=== PATIENT | male | born 1975 | race Caucasian/White ===

== ENCOUNTER 2017-05-28 16:36 | Emergency (ER) | payer BC, OTHER ==
[2017-05-28] MEDS ORDERED: Sodium Chloride 0.9% 1,000 ML ONE ×2 (16:47→20:49)
[2017-05-28] MEDS ORDERED: Ondansetron HCl/PF 4 MG/2 ML Vial ONE ×2 (16:47→19:23)
[2017-05-28 17:29] LABS: ALT (SGPT) 53 U/L (8-55); AST (SGOT) 26 U/L (5-34); Albumin 4.4 g/dL (3.5-5.0); Alkaline Phosphatase 64 U/L (40-150); Anion Gap 20 mmol/L (10-20); BUN (Urea Nitrogen) 21 mg/dL (8.9-20.6); Bilirubin, Total 0.6 mg/dL (0.2-1.2); Calc. Creatinine Clearance 0 mL/min (70-130); Calcium 10.4 mg/dL (7.8-10.44); Carbon Dioxide 18 mmol/L (22-29); Chloride 104 mmol/L (98-107); Estimated GFR-MDRD 54; Globulin 3.3 g/dL (2.4-3.5); Glucose 181 mg/dL (70-105); Potassium 4.6 mmol/L (3.5-5.1); Protein, Total 7.7 g/dL (6.0-8.3); Sodium 137 mmol/L (136-145)
[2017-05-28 17:54] LABS: Band 3 % (5-11); Hemoglobin 15.4 g/dL (14.0-18.0); Lymphocytes 5 % (21-51); MDiff Complete? YES; Mean Corpuscular Hemoglobin 28.4 pg (27.0-31.0); Mean Corpuscular Volume 83.5 fl (80.0-94.0); Mean Platelet Volume 8.3 fL (7.4-10.4); Monocytes 3 % (0-10); Neutrophil 89 % (42-75); Platelet Count 388 thou/uL (130-400); RBC Distribution Width 11.2 % (11.5-14.5); Red Blood Cell (RBC) Count 5.43 mill/uL (4.70-6.10); White Blood Cell (WBC) Count 21.5 thou/uL (4.8-10.8)
[2017-05-28] MEDS ORDERED: Levofloxacin 500 mg/D5W 100 ml Premix Bag ONE (18:39)
--- NOTE | 2017-05-28 18:51 | CT ---
CT OF THE ABDOMEN AND PELVIS: 05/28/17 COMPARISON: None. HISTORY: Nausea, vomiting and diarrhea. TECHNIQUE: Serial axial CT imaging is obtained at 5 mm intervals from the lung bases through the pubic symphysis without contrast. Coronal reformatted imaging obtained. FINDINGS: The lack of contrast limits assessment of the viscera, bowel, vascular structures and for lymphadenop athy. The imaged lung bases appear unremarkable. There is no free intraperitoneal air seen. Liver is diffus karthikeyan hypodense suggesting steatosis. Spleen, gallbladder, pancreas, adrenal glands, and kidneys are gr ossly unremarkable. There is extensive diverticulosis of the descending colon and sigmoid colon. There is mild wall thick ening of the sigmoid colon within the left lower quadrant which may represent mild diverticulitis. No significant pericolonic fat stranding is seen. No evidence for extraluminal gas or abscess. There is scattered atherosclerotic calcification of the infrarenal abdominal aorta. no evidence for o bstructive uropathy or nephrolithiasis is appreciated on either side. The osseous structures demonstr ate no acute findings. Old right sided transverse process fractures are noted at L3 and L4. IMPRESSION: 1. No evidence for nephrolithiasis or obstructive uropathy. 2. Sigmoid and descending colonic diverticulosis with possible mild diverticulitis in the region of the sigmoid colon. 3. Hepatic steatosis. POS: [facility]
[2017-05-28] MEDS ORDERED: Sodium Chloride 0.9% 100 ML ONE (19:52)
[2017-05-28] MEDS ORDERED: Promethazine HCl 25 MG/ML VIAL ONE (19:52)
[2017-05-28] MEDS ORDERED: metroNIDAZOLE 500 MG/100 ML BAG ONE ×2 (21:04→21:14)
== END 2017-05-28 22:35 | disposition short-term general hospital (02) ==
LOC: NAV ERS 16:36
DX: K52.9 Noninfective gastroenteritis and colitis, unspecified (principal); K57.92 Diverticulitis of intestine, part unspecified, without perforation or abscess without bleeding; E86.9 Volume depletion, unspecified; N28.9 Disorder of kidney and ureter, unspecified; E11.9 Type 2 diabetes mellitus without complications; E78.5 Hyperlipidemia, unspecified; K21.9 Gastro-esophageal reflux disease without esophagitis; I10 Essential (primary) hypertension; F17.210 Nicotine dependence, cigarettes, uncomplicated; Z79.84 Long term (current) use of oral hypoglycemic drugs; Z79.899 Other long term (current) drug therapy
CPT/HCPCS: 74176; 80053; 82274; 85025; 87045; 87046; 87449; 87899; 96361; 96365; 96367; 96375; 96376; J1956; J2270; J2405; J2550; J7050

== ENCOUNTER 2018-05-10 12:03 | Emergency (ER) | payer BC ==
[2018-05-10 12:40] LABS: #Monocytes 0.7 thou/uL (0.11-0.59); #Neutrophils 11.5 thou/uL (1.40-6.50); %Basophils 0.3 % (0.0-1.0); %Eosinophils 0.1 % (0.0-10.0); %Lymphocytes 7.5 % (21.0-51.0); %Monocytes 5.4 % (0.0-10.0); %Neutrophils 86.7 % (42.0-75.0); Hemoglobin 14.9 g/dL (14.0-18.0); Mean Corpuscular HGB CONC 34.1 g/dL (32.0-36.0); Mean Corpuscular Hemoglobin 29.3 pg (27.0-31.0); Mean Corpuscular Volume 85.8 fL (78.0-98.0); Mean Platelet Volume 6.6 fL (7.4-10.4); Platelet Count 429 thou/uL (130-400); RBC Distribution Width 11.8 % (11.5-14.5); White Blood Cell (WBC) Count 13.2 thou/uL (4.8-10.8)
[2018-05-10] MEDS ORDERED: Morphine 4 MG/ML VIAL ONE (12:46)
[2018-05-10] MEDS ORDERED: Sodium Chloride 0.9% 1,000 ML ONE (12:46)
[2018-05-10] MEDS ORDERED: Ondansetron PF 4 MG/2 ML Vial ONE (12:46)
[2018-05-10 12:58] LABS: ALT (SGPT) 33 U/L (8-55); AST (SGOT) 21 U/L (5-34); Albumin 4.6 g/dL (3.5-5.0); Alkaline Phosphatase 81 U/L (40-150); Anion Gap 19 mmol/L (10-20); BUN (Urea Nitrogen) 27 mg/dL (8.9-20.6); Bilirubin, Total 0.5 mg/dL (0.2-1.2); Calc. Creatinine Clearance 0 mL/min (70-130); Calcium 10.5 mg/dL (7.8-10.44); Carbon Dioxide 22 mmol/L (22-29); Chloride 99 mmol/L (98-107); Estimated GFR-MDRD 45; Glucose 261 mg/dL (70-105); Potassium 4.2 mmol/L (3.5-5.1); Protein, Total 7.6 g/dL (6.0-8.3); Sodium 136 mmol/L (136-145)
[2018-05-10 13:04] LABS: Bilirubin Small (Negative); Blood, Urine Negative (Negative); Clarity Clear (Clear); Glucose, Urine (Dipstick) 250 mg/dL (Negative); Leukocyte Negative (Negative); Nitrite Negative (Negative); Protein, Urine (Dipstick) 30 mg/dL (Neg-Trace); Specific Gravity, Urine 1.025 (1.005-1.030); Urobilinogen 0.2 mg/dL (0.2-1.0); pH, Urine 5.5 (5.0-9.0)
[2018-05-10 13:09] LABS: Bacteria/HPF None Seen HPF (None Seen); RBC/HPF None Seen HPF (0-3); Squamous Epithelial 0-3 HPF (0-3); WBC/HPF None Seen HPF (0-3)
--- NOTE | 2018-05-10 13:47 | CT ---
CT OF ABDOMEN AND PELVIS PERFORMED WITHOUT CONTRAST ENHANCEMENT: Date: 05/10/18 HISTORY: Left-sided abdominal pain. COMPARISON: 05/28/18 study. FINDINGS: The lung bases are clear. There are fatty changes of the liver, which measures 19.1 cm in length. The spleen is within normal l imits. The pancreas and gallbladder regions are unremarkable. Right and left adrenal glands, and right and left kidneys are normal in size. No obstruction. No jarvis l calculi or mass. No significant periaortic or mesenteric adenopathy. CT of pelvis was performed without contrast enhancement. Mild diverticulosis of the descending colon is noted. More pronounced changes of the sigmoid colon. No inflammatory process visualized. No signif icant pelvic lymphadenopathy. No inflammatory change in the expected region of the appendix. The appe ndix itself is difficult to definitively identify. IMPRESSION: 1. Colonic diverticulosis. 2. Fatty change of the liver. POS: [facility]
== END 2018-05-10 14:46 | disposition home or self-care (01) ==
LOC: NAV ERS 12:03
DX: K52.9 Noninfective gastroenteritis and colitis, unspecified (principal); N28.9 Disorder of kidney and ureter, unspecified; E11.9 Type 2 diabetes mellitus without complications; E78.5 Hyperlipidemia, unspecified; K21.9 Gastro-esophageal reflux disease without esophagitis; I10 Essential (primary) hypertension; F17.210 Nicotine dependence, cigarettes, uncomplicated; Z79.899 Other long term (current) drug therapy; Z79.84 Long term (current) use of oral hypoglycemic drugs
CPT/HCPCS: 36415; 36416; 74176; 80053; 81003; 81015; 83690; 85025; 96361; 96374; 96375; J2270; J2405; J7050

== ENCOUNTER 2018-11-22 09:31 | Outpatient (CLI) | payer BC ==
--- NOTE | 2018-11-22 10:09 | RAD ---
XR Pelvis AP STANDARD History: Pain Comparison: None. Findings: No acute fracture or malalignment. SI joints and pubic symphysis are unremarkable. Hip join t alignment is normal. Soft tissues are unremarkable. Impression: No acute abnormality of the pelvis.
--- NOTE | 2018-11-22 10:10 | RAD ---
XR Hip Lt 2-3 View History: Pain Comparison: None. Findings: No acute fracture or malalignment. Obturator ring is intact. Soft tissues are unremarkable. No enthesopathy. Impression: Normal examination of the left hip.
== END 2018-11-22 09:32 | disposition home or self-care (01) ==
LOC: NAV RAD 09:31
PROVIDERS: ATTEND Family Medicine
DX: M25.552 Pain in left hip (principal)
CPT/HCPCS: 72170

== ENCOUNTER 2019-12-14 14:36 | Outpatient (CLI) | payer BC ==
--- NOTE | 2019-12-14 17:38 | RAD ---
THORACIC SPINE 3 VIEWS: INDICATION: History of back pain and hypertension. FINDINGS: There are 12 rib-bearing thoracic vertebrae. There is mild multilevel degenerative disk disease of t he thoracic spine. There are intervertebral disk replacements at C4-5 and C5-6. IMPRESSION: Mild thoracic spondylosis. No acute fracture or subluxation. POS: [facility]
== END 2019-12-14 14:37 | disposition home or self-care (01) ==
LOC: NAV RAD 14:36
PROVIDERS: ATTEND Family Medicine
DX: I10 Essential (primary) hypertension (principal); M47.814 Spondylosis without myelopathy or radiculopathy, thoracic region
CPT/HCPCS: 72072

== ENCOUNTER 2022-12-22 14:56 | Emergency (ER) | payer BC, OTHER ==
[2022-12-22] MEDS ORDERED: Ondansetron PF 4 MG/2 ML Vial ONE (15:29)
[2022-12-22] MEDS ORDERED: Morphine 4 MG/ML VIAL ONE ×2 (15:29→16:59)
[2022-12-22] MEDS ORDERED: Lidocaine 1% (PF) 30 ML VIAL ONE (15:45)
[2022-12-22] MEDS ORDERED: Boostrix 0.5 ML (Tdap) VIAL (>/=7 yrs of age) ONE (17:50)
[2022-12-22] MEDS ORDERED: Amoxicillin/Potassium Clav 875 MG TAB ONE (17:50)
== END 2022-12-22 17:50 | disposition home or self-care (01) ==
LOC: NAV ERS 14:56
DX: S02.42XA Fracture of alveolus of maxilla, initial encounter for closed fracture (principal); S01.511A Laceration without foreign body of lip, initial encounter; S03.2XXA Dislocation of tooth, initial encounter; E11.9 Type 2 diabetes mellitus without complications; E78.00 Pure hypercholesterolemia, unspecified; I10 Essential (primary) hypertension; F17.210 Nicotine dependence, cigarettes, uncomplicated; Z79.899 Other long term (current) drug therapy; Z79.4 Long term (current) use of insulin; Y29.XXXA Contact with blunt object, undetermined intent, initial encounter
CPT/HCPCS: 12052; 70486; 90471; 90715; 96374; 96375; 96376; J2001; J2270; J2405

== ENCOUNTER 2024-02-24 13:21 | Emergency (ER) | payer OTHER ==
[~2024-02-24 13:21] MED LIST: Iopamidol 370 76% 100 ML VIAL ONE
[2024-02-24] MEDS ORDERED: hydrALAZINE 20 MG/ML VIAL ONE (13:46)
[2024-02-24] MEDS ORDERED: Morphine 4 MG/ML VIAL ONE ×2 (13:46→21:34)
[2024-02-24] MEDS ORDERED: Morphine 2 MG/ML VIAL ONE (13:46)
[2024-02-24] MEDS ORDERED: Ondansetron PF 4 MG/2 ML Vial ONE (13:46)
[2024-02-24 14:04] LABS: PTT 27.6 sec (22.9-36.1)
[2024-02-24 14:09] LABS: Bicarbonate (HCO3v) 26.3 mmol/L (22.0-28.0); CO2 Tension (PvCO2) 51.5 mmHg (42.0-51.0)
[2024-02-24 14:10] LABS: Base Excess-Venous -0.7 mmol/L (-2.0 to 3.0); Calcium, Ionized 1.16 mmol/L (1.15-1.33); Chloride 101 mmol/L (98-107); Hemoglobin - Calc 14.4 g/dL (14.0-18.0); Potassium 3.9 mmol/L (3.5-5.1); Sodium 138 mmol/L (138-145); T. Carbon Dioxide 27.9 mmol/L (22.0-28.0); vO2 Saturation-calc 57.4 % (60.0-85.0)
[2024-02-24 14:17] LABS: ALT (SGPT) 50 U/L (8-55); AST (SGOT) 31 U/L (5-34); Albumin 4.2 g/dL (3.5-5.0); Alkaline Phosphatase 65 U/L (40-110); Anion Gap 17 mmol/L (10-20); BUN (Urea Nitrogen) 13 mg/dL (8.9-20.6); Bilirubin, Total 0.4 mg/dL (0.2-1.2); CK (CPK) 296 U/L (30-200); Calc. Creatinine Clearance 0 mL/min (70-130); Calcium 9.3 mg/dL (7.8-10.44); Carbon Dioxide 22 mmol/L (22-29); Chloride 101 mmol/L (98-107); Estimated GFR 56; Globulin 3.7 g/dL (2.4-3.5); Glucose 263 mg/dL (70-105); Lipase 65 U/L (8-78); Potassium 3.9 mmol/L (3.5-5.1); Protein, Total 7.9 g/dL (6.0-8.3); Sodium 136 mmol/L (136-145)
[2024-02-24 14:20] LABS: Troponin I 0.012 ng/mL (< 0.028)
[2024-02-24 14:28] LABS: #Basophils 0.1 thou/uL (0.0-0.2); #Eosinophils 0.2 thou/uL (0.0-0.7); #Lymphocytes 2.2 thou/uL (1.20-3.40); #Monocytes 0.5 thou/uL (0.11-0.59); #Neutrophils 5.8 thou/uL (1.40-6.50); %Basophils 1.4 % (0.0-1.0); %Eosinophils 2.3 % (0.0-10.0); %Lymphocytes 24.7 % (21.0-51.0); %Monocytes 5.6 % (0.0-10.0); Hematocrit 37.7 % (42.0-52.0); Mean Corpuscular HGB CONC 31.8 g/dL (32.0-36.0); Mean Corpuscular Hemoglobin 24.9 pg (27.0-31.0); Mean Corpuscular Volume 78.4 fl (78.0-98.0); Platelet Count 537 10x3/uL (130-400); RBC Distribution Width 14.2 % (11.5-14.5); Red Blood Cell (RBC) Count 4.81 mill/uL (4.70-6.10); White Blood Cell (WBC) Count 8.8 10x3/uL (4.8-10.8)
[2024-02-24 14:41] LABS: Bilirubin Negative (Negative); Blood, Urine Negative (Negative); Clarity Clear (Clear); Glucose, Urine (Dipstick) >=1000 mg/dL (Negative); Ketone, Urine Negative (Negative); Leukocyte Negative (Negative); Nitrite Negative (Negative); Protein, Urine (Dipstick) Negative (Neg-Trace); Urobilinogen 0.2 mg/dL (Less than 2); pH, Urine 5.5 (5.0-9.0)
[2024-02-24 14:49] LABS: RBC/HPF 0-3 HPF (0-3)
[2024-02-24 14:50] LABS: CAUTI Indications for Culture Pelvic or flank pain; Squamous Epithelial 0-3 HPF (0-3); Urine Culture Reflex No No; WBC/HPF None Seen HPF (0-3)
[2024-02-24 14:51] LABS: Amphetamine Not Detected (NotDetected); Barbiturates Screen Not Detected (NotDetected); Benzodiazepine Screen Not Detected (NotDetected); Cocaine Metabolite Screen Not Detected (NotDetected); Methadone Not Detected (NotDetected); Methamphetamine Not Detected (NotDetected); Opiate Screen Detected (NotDetected); Oxycodone Screen Not Detected (NotDetected); Phencyclidine (PCP) Not Detected (NotDetected); THC/Cannabinoid Screen Detected (NotDetected); Tricyclic Screen Not Detected (NotDetected)
[2024-02-24] MEDS ORDERED: cefTRIAXone (ROCEPHIN) 1 GM VIAL ONE (16:03)
[2024-02-24] MEDS ORDERED: Ketorolac Tromethamine 30 MG (1 mL) VIAL ONE ×2 (16:03→21:34)
[2024-02-24] MEDS ORDERED: Sodium Chloride 0.9% 100 ML ONE (16:04)
== END 2024-02-25 01:19 | disposition short-term general hospital (02) ==
LOC: NAV ERS 13:21
DX: R10.32 Left lower quadrant pain (principal); R06.02 Shortness of breath; I12.9 Hypertensive chronic kidney disease with stage 1 through stage 4 chronic kidney disease, or unspecified chronic kidney disease; E11.22 Type 2 diabetes mellitus with diabetic chronic kidney disease; N18.9 Chronic kidney disease, unspecified; F17.210 Nicotine dependence, cigarettes, uncomplicated; Z79.84 Long term (current) use of oral hypoglycemic drugs; Z79.899 Other long term (current) drug therapy
CPT/HCPCS: 36416; 71275; 74177; 80053; 80306; 81001; 82330; 82435; 82550; 82803; 83605; 83690; 84132; 84295; 84484; 85014; 85025; 85610; 85730; 96365; 96375; 96376; J0360; J0696; J1885; J2272; J2405; Q9967

== ENCOUNTER 2024-12-18 11:43 | Emergency (ER) | payer OTHER ==
[2024-12-18] MEDS ORDERED: Ondansetron PF 4 MG/2 ML Vial ONE (12:19)
[2024-12-18 12:48] LABS: #Basophils 0.1 thou/uL (0.0-0.2); #Eosinophils 0.3 thou/uL (0.0-0.7); #Lymphocytes 2.0 thou/uL (1.20-3.40); #Monocytes 0.7 thou/uL (0.11-0.59); #Neutrophils 8.5 thou/uL (1.40-6.50); %Basophils 1.0 % (0.0-1.0); %Eosinophils 2.2 % (0.0-10.0); %Lymphocytes 17.1 % (21.0-51.0); %Monocytes 5.7 % (0.0-10.0); %Neutrophils 73.9 % (42.0-75.0); Hematocrit 39.3 % (42.0-52.0); Hemoglobin 12.5 g/dL (14.0-18.0); Mean Corpuscular Hemoglobin 23.9 pg (27.0-31.0); Mean Corpuscular Volume 74.9 fl (78.0-98.0); Platelet Count 596 10x3/uL (130-400); Red Blood Cell (RBC) Count 5.24 mill/uL (4.70-6.10); White Blood Cell (WBC) Count 11.5 10x3/uL (4.8-10.8)
[2024-12-18 12:58] LABS: ALT (SGPT) 34 U/L (Less than 45); AST (SGOT) 16 U/L (11-34); Albumin 4.4 g/dL (3.1-4.5); Alkaline Phosphatase 107 U/L (40-110); Anion Gap 25 mmol/L (10-20); BUN (Urea Nitrogen) 28 mg/dL (8.9-20.6); Bilirubin, Total 0.4 mg/dL (0.3-1.2); Calc. Creatinine Clearance 0 mL/min (70-130); Calcium 10.2 mg/dL (7.8-10.44); Carbon Dioxide 20 mmol/L (22-29); Chloride 88 mmol/L (98-107); Globulin 3.2 g/dL (2.4-3.5); Potassium 4.9 mmol/L (3.5-5.1); Sodium 128 mmol/L (136-145)
[2024-12-18 12:59] LABS: Glucose, Urine (Dipstick) >=1000 mg/dL (Negative); Leukocyte Negative (Negative); Protein, Urine (Dipstick) Negative (Neg-Trace); Specific Gravity, Urine Less/Equal 1.005 (1.005-1.030)
[2024-12-18 13:00] LABS: Critical Call Chemistry ROBJO@1250.NW; Glucose 723 mg/dL (70-105)
[2024-12-18 13:03] LABS: Bicarbonate (HCO3v) 23.2 mmol/L (22.0-28.0); CO2 Tension (PvCO2) 40.2 mmHg (42.0-51.0); Calcium, Ionized 1.15 mmol/L (1.15-1.33); Chloride 94 mmol/L (98-107); Hemoglobin - Calc 14.3 g/dL (14.0-18.0); Potassium 4.7 mmol/L (3.5-5.1); Sodium 127 mmol/L (138-145); T. Carbon Dioxide 24.5 mmol/L (22.0-28.0); vO2 Saturation-calc 89.7 % (60.0-85.0)
[2024-12-18 13:11] LABS: Troponin I Less than 0.010 ng/mL (< 0.028)
[2024-12-18 13:12] LABS: CAUTI Indications for Culture Dysuria,urgency,freq; WBC/HPF None Seen HPF (0-3)
[2024-12-18 13:13] LABS: Urine Culture Reflex No No
[2024-12-18] MEDS ORDERED: INSULIN REGULAR IN 0.9 % NACL 100 ML ONE (13:29)
[2024-12-18 19:28] LABS: Anion Gap 19 mmol/L (10-20); BUN (Urea Nitrogen) 24 mg/dL (8.9-20.6); Calc. Creatinine Clearance 0 mL/min (70-130); Calcium 9.0 mg/dL (7.8-10.44); Carbon Dioxide 22 mmol/L (22-29); Chloride 98 mmol/L (98-107); Glucose 241 mg/dL (70-105); Potassium 3.8 mmol/L (3.5-5.1); Sodium 135 mmol/L (136-145)
== END 2024-12-18 19:49 | disposition home or self-care (01) ==
LOC: NAV ERS 11:43
DX: E11.65 Type 2 diabetes mellitus with hyperglycemia (principal); E78.00 Pure hypercholesterolemia, unspecified; K21.9 Gastro-esophageal reflux disease without esophagitis; I10 Essential (primary) hypertension; F17.210 Nicotine dependence, cigarettes, uncomplicated; Z79.84 Long term (current) use of oral hypoglycemic drugs; Z79.899 Other long term (current) drug therapy
CPT/HCPCS: 36416; 71046; 80053; 81001; 82330; 82803; 84484; 85025; 93005; 94760; 96361; 96365; 96366; 96375; 96376; J1815; J7030